=== PATIENT | female | born 1995 | race Caucasian/White ===

== ENCOUNTER 2017-08-16 18:36 | Emergency (ER) | payer OTHER ==
[2017-08-16 18:42] VITALS: RESP 20; TEMP 96.8; O2SAT 100
--- NOTE | 2017-08-16 19:16 | EDPHY ---
H & P Time Seen by Provider: 08/16/17 18:48 HPI/ROS: CHIEF COMPLAINT: Difficulty breathing HISTORY OF PRESENT ILLNESS: Patient is a 22-year-old female who presents to the emergency department with reported shortness of breath. Her symptoms have been on and off for the past month. It is slightly worsened over the past week. She occasionally has bilateral hand tingling. She went to [facility] and was told that her symptoms were likely related to anxiety. Patient states she is under stress because she is applying to PhD programs. Patient has had no leg pain or swelling. The patient went to [place] 07/09 through 07/29/2017. Patient has had no cough. No chest pain. No fevers or chills. REVIEW OF SYSTEMS: My complete review of systems is negative except as mentioned in the HPI. Past Medical/Surgical History: Denies Past surgical history: Denies Social history: The patient does not smoke Smoking Status: Never smoked Physical Exam: 36.0, 131/73, 89, 20, 100% on room air GENERAL: Well-appearing, in no acute distress, alert. HEENT: Eyes normal to inspection, normal pharynx, no signs of dehydration. NECK: [No thyromegaly, no lymphadenopathy, supple. RESPIRATORY: Clear to auscultation bilaterally, no rales, rhonchi or wheezing. Normal CVS: Regular rate and rhythm, no rubs, murmurs, or gallops. ABDOMEN: Soft, nontender, nondistended, no organomegaly. BACK: Normal to inspection, no CVA tenderness. SKIN: Normal color, no rash, warm, dry. No pallor. EXTREMITIES: No pedal edema, no calf tenderness, no Homans sign or cords, no joint swelling. NEURO/PSYCH: Alert and oriented, normal mood and affect, normal motor sensory exam. No obvious cranial nerve deficit. Constitutional: Initial Vital Signs Temperature (C) 36.0 C 08/16/17 18:39 Heart Rate 89 08/16/17 18:39 Respiratory Rate 20 08/16/17 18:39 Blood Pressure 131/73 H 08/16/17 18:39 O2 Sat (%) 100 08/16/17 18:39 O2 Delivery Mode Room Air Allergies/Adverse Reactions: No Known Allergies Allergy (Unverified 08/16/17 18:38) Home Medications: Medication Instructions Recorded NK [No Known Home Meds] 08/16/17 Medical Decision Making - Diagnostics Imaging Results: Imaging Impressions Chest X-Ray 08/16/17 19:16 Impression: Mild hyperexpansion, which can be seen with deep inspiratory effort or airways disease. ED Course/Re-evaluation: In the emergency department I discussed possible etiologies with the patient. I answered all her questions. Laboratory studies, EKG and chest x-ray were ordered. Chest x-ray: Please refer the dictated report. No infiltrate. Mild hyperinflation. EKG shows normal sinus rhythm, normal rate, normal axis, normal intervals. There are no ST or T-wave abnormalities. EKG is normal as interpreted by me. Patient's CBC and chemistry unremarkable. D-dimer was 0.38. negative. Differential Diagnosis: My differential includes but is not limited to pulmonary embolus, bronchitis, pneumonia, ACS, anxiety - Data Points Laboratory Results: Laboratory Results 08/16/17 19:28 08/16/17 19:28 08/16/17 08/16/17 08/16/17 19:28 19:28 19:28 WBC RBC Hgb Hct MCV MCH MCHC RDW Plt Count MPV Neut % (Auto) Lymph % (Auto) Gladwin % (Auto) Eos % (Auto) Baso % (Auto) Nucleat RBC Rel Count Absolute Neuts (auto) Absolute Lymphs (auto) Absolute Monos (auto) Absolute Eos (auto) Absolute Basos (auto) Absolute Nucleated RBC Immature Gran % Immature Gran # D-Dimer 0.38 ug/mLFEU ug/mLFEU (0.00-0.50) Sodium 145 mEq/L mEq/L (135-145) Potassium 3.7 mEq/L mEq/L (3.5-5.2) Chloride 104 mEq/L mEq/L (97-110) Carbon Dioxide 24 mEq/l mEq/l (22-31) Anion Gap 17 mEq/L H mEq/L (8-16) BUN 14 mg/dL mg/dL (7-23) Creatinine 0.7 mg/dL mg/dL (0.6-1.0) Estimated GFR > 60 Glucose 97 mg/dL mg/dL (70-100) Calcium 10.3 mg/dL mg/dL (8.5-10.4) Beta HCG, Qual NEGATIVE 08/16/17 19:28 WBC 9.37 10^3/uL 10^3/uL (3.80-9.50) RBC 5.11 10^6/uL 10^6/uL (4.18-5.33) Hgb 14.1 g/dL g/dL (12.6-16.3) Hct 43.4 % % (38.0-47.0) MCV 84.9 fL fL (81.5-99.8) MCH 27.6 pg L pg (27.9-34.1) MCHC 32.5 g/dL g/dL (32.4-36.7) RDW 12.8 % % (11.5-15.2) Plt Count 256 10^3/uL 10^3/uL (150-400) MPV 10.0 fL fL (8.7-11.7) Neut % (Auto) 54.2 % % (39.3-74.2) Lymph % (Auto) 38.3 % % (15.0-45.0) Gladwin % (Auto) 5.2 % % (4.5-13.0) Eos % (Auto) 1.7 % % (0.6-7.6) Baso % (Auto) 0.3 % % (0.3-1.7) Nucleat RBC Rel Count 0.0 % % (0.0-0.2) Absolute Neuts (auto) 5.07 10^3/uL 10^3/uL (1.70-6.50) Absolute Lymphs (auto) 3.59 10^3/uL H 10^3/uL (1.00-3.00) Absolute Monos (auto) 0.49 10^3/uL 10^3/uL (0.30-0.80) Absolute Eos (auto) 0.16 10^3/uL 10^3/uL (0.03-0.40) Absolute Basos (auto) 0.03 10^3/uL 10^3/uL (0.02-0.10) Absolute Nucleated RBC 0.00 10^3/uL 10^3/uL (0-0.01) Immature Gran % 0.3 % % (0.0-1.1) Immature Gran # 0.03 10^3/uL 10^3/uL (0.00-0.10) D-Dimer Sodium Potassium Chloride Carbon Dioxide Anion Gap BUN Creatinine Estimated GFR Glucose Calcium Beta HCG, Qual Departure - Departure Disposition: Home, Routine, Self-Care Clinical Impression: Dyspnea Qualifiers: Dyspnea type: unspecified Qualified Code(s): R06.00 - Dyspnea, unspecified Condition: Good Instructions: Dyspnea (ED) Additional Instructions: Return with increasing shortness of breath. Your laboratory studies and chest x -ray were unremarkable. Referrals: [facility],. [Clinic] - 3-4 days, if not improved
--- NOTE | 2017-08-16 19:25 | CPEKG ---
Heart Rate: 88 RR Interval: 682 P-R Interval: 156 QRSD Interval: 82 QT Interval: 364 QTC Interval: 441 P Aquilla: 71 QRS Aquilla: 65 T Wave Aquilla: 54 EKG Severity - NORMAL ECG - EKG Impression: SINUS RHYTHM Electronically Signed By: Samreen Casas 16-Aug-2017 20:36:15
[2017-08-16 19:35] LABS: PLATELET COUNT 256 10^3/uL (150-400)
[2017-08-16 20:13] VITALS: BP 128/84; PULSE 99
== END 2017-08-16 20:14 | disposition home or self-care (01) ==
DX: R06.00 Dyspnea, unspecified (principal)